=== PATIENT | female | born 1995 | race Caucasian/White ===

== ENCOUNTER 2024-11-17 09:27 | Inpatient (IN) ==
[2024-11-17] MEDS ORDERED: LACTATED RINGERS 1,000 ML IV PRN (09:40)
[2024-11-17] MEDS ORDERED: METHYLERGONOVINE 0.2 MG/ML VIAL IM PRN (09:40)
[2024-11-17] MEDS ORDERED: OXYTOCIN 10 UNIT/ML VIAL IM PRN (09:40)
[2024-11-17] MEDS ORDERED: LABETALOL 20 MG/4 ML SYRINGE IVP PRN ×3 (09:40)
[2024-11-17] MEDS ORDERED: TERBUTALINE 1 MG/ML VIAL SUBQ PRN (09:40)
[2024-11-17] MEDS ORDERED: miSOPROStoL 200 MCG TABLET BC PRN (09:40)
[2024-11-17] MEDS ORDERED: NIFEdipine 10 MG CAPSULE PO PRN (09:40)
[2024-11-17] MEDS ORDERED: SODIUM CHLORIDE FLUSH 0.9% 10 ML SYRINGE IVP PRN (09:40)
[2024-11-17] MEDS ORDERED: miSOPROStoL 200 MCG TABLET PR PRN (09:40)
[2024-11-17] MEDS ORDERED: hydrALAZINE INJ 20 MG/ML VIAL IVP PRN (09:40)
[2024-11-17] MEDS ORDERED: fentaNYL 100 MCG/2 ML VIAL IVP PRN (09:40)
[2024-11-17] MEDS ORDERED: lidocaine 1% 20 ML MDV ID PRN (09:40)
[2024-11-17] MEDS ORDERED: TRANEXAMIC ACID IN NACL 1,000 MG/100 ML BAG IV PRN (09:40)
[2024-11-17] MEDS ORDERED: LACTATED RINGERS 1,000 ML IV SCH (10:00)
[2024-11-17 10:28] LABS: BASOPHILS % (AUTO) 0.2 %; EOSINOPHILS % (AUTO) 0.4 %; HCT - HEMATOCRIT 36.9 % (37.0-47.0); HGB - HEMOGLOBIN 12.6 g/dL (12.0-16.0); LYMPHOCYTES # (AUTO) 1.5 10^3/uL (1.5-3.5); LYMPHOCYTES % (AUTO) 15.8 %; MEAN CORPUSCULAR HGB CONC 34.1 g/dL (32.0-36.0); MEAN CORPUSCULAR VOLUME 87.9 fL (81.0-99.0); MEAN PLATELET VOLUME 10.1 fL (7.9-10.8); MONOCYTES # (AUTO) 0.6 10^3/uL (0.0-1.0); MONOCYTES % (AUTO) 6.1 %; NEUTROPHILS # (AUTO) 7.3 10^3/uL (1.5-6.6); NEUTROPHILS % (AUTO) 77.2 %; PLT - PLATELET COUNT 207 10^3/uL (130-450); RED CELL DISTRIBUTION WIDTH 12.2 % (12.0-15.0); WHITE BLOOD COUNT 9.4 x10^3/uL (4.8-10.8)
--- NOTE | 2024-11-17 10:42 | HISTORY & PHYSICAL EXAMINATION ---
Admit History Smoking Status: Never smoker HPI Current : Vital Signs Temperature 97.9 F 11/17/24 09:41 Pulse Rate 84 11/17/24 09:41 Respiratory Rate 17 11/17/24 09:41 Blood Pressure 129/70 11/17/24 09:41 Meds/Allgy Home Medications Ambulatory Orders Medication Instructions Recorded Confirmed vitamins no.159-iron tab PO 06/04/24 11/15/24 fumarate 28 mg-folic acid 800 mcg tablet ( Vitamin) fluoxetine 10 mg capsule (Prozac) 10 mg PO QDAY #90 caps 08/20/24 11/15/24 Allergies Allergies Allergy/AdvReac Type Severity Reaction Status Date / Time pollen extracts Allergy Mild Unknown Verified 11/15/24 12:52 PFSH Active Problems All Active Problems (Updated 06/04/24 @ 16:52 by Eliz Oneal MA) Normal in second trimester (Acute) Surgical History Surgical History Hx of tonsillectomy Hx of adenoidectomy Family History Family History Maternal grandmother CVA (cerebral vascular accident) Aunt Thyroid disease Grandfather Cancer Grandmother Cancer Social History Social History Smoking Status: Never smoker Do you dip or chew tobacco?: No Do you vape?: No ETOH Use: None Substance Use: denies use Physical Abdominal Exam Vital Signs: Temp Pulse Resp BP 97.9 F 84 17 129/70 11/17/24 09:41 11/17/24 09:41 11/17/24 09:41 11/17/24 09:41 Plan for Labor Plan For Labor I expect patient to be DC'd or transferred within 96 hours.: Yes Plan for Labor: Marie is a 29yo @ 40.3wks gestation by LMP c/w 7wk U/S who presents to [facility] in active labor. Upon arrival cervix is 5/90/-2 and vertex with intact membranes. FHR baseline 120s, moderate variability, + accels, no decels. Contractions palpate strong every 3-4 minutes with soft resting tone. She reports contractions starting early this morning at 0130 and have increased in frequency and intensity since that time. She has been a patient of [facility] for the duration of her which has remained uncomplicated. She will be admitted to [facility] for expectant management. She is supported by her Vijay today. : [birth year]/08/20[birth year], @ 41+wks G2: Current; It's a GIRL! Sharon LMP: 02/05/2024-approximate PURNIMA by LMP: 11/06/2023 US: 04/03/2024 @ 7.6wks dates with PURNIMA 11/14/2024 Final PURNIMA: 11/14/2024 Medical Hx: no significant Surgical Hx: Tonsillectomy, adenoidectomy Family Hx: Thyroid disease - Aunt; Cancer - PGF, PGM Social hx: No ETOH or IVDA. Never smoker. 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 Vijay. Pre- Weight: 150 BMI: 26.6 Blood type: B positive Antibody Screen: negative CBC: PLT 246 HCT 12.9 HGB 40 RUB: immune VZV: immune HBsAg: NR HepC: NR RPR: NR HIV: NR Flu: declined Covid: x2 PAP: 04/2022 WNL GC/CT: neg HSV: denies in self and partner Genetic testing: declines FLU shot: 06/17/2024 FAS: 07/02/2024 Placenta: fundal Cord: 3VC ADELIA: 16.9cm EFW: 372g 50gm OGCT: 54 TDAP: 08/20/2024 Breast Pump: 08/20/2024 CBC: PLT 187/HCT 11.4/HGB 35.6 RPR: NR GBS: Negative Delivery plan: Desires unmedicated, low intervention delivery MOD: Anticipate Physical exam: Normocephalic, atraumatic Heart RRR w/o M/G/R Lungs CTAB Abdomen gravid, soft, nontender EFW 3700g FHR baseline 120s, moderate variability, = accels, no decels Contractions palpate strong every 3-4 minutes with soft resting tone SVE 5/90/-2, vertex. Intact membranes - bulging Bilateral LE's no edema Mood is good. Assessment: 29yo @ 40.3wks gestation Active labor GBS negative FHR Category I Plan: Admit to [facility] for expectant management. Intermittent heart rate auscultation. Jacuzzi PRN. Nitrous oxide PRN. Epidural per maternal request. Anticipate . Conclusion/Plan Lab Results 11/17/24 10:18
[2024-11-17] MEDS ORDERED: ONDANSETRON 4 MG/2 ML VIAL IVP PRN (11:51)
[2024-11-17] MEDS: OXYTOCIN/SODIUM CHLORIDE 500 ML IV PRN (14:39)
[2024-11-17] MEDS ORDERED: HYDROCORTISONE 1% CREAM 28 GM TUBE TOP PRN (15:21)
[2024-11-17] MEDS ORDERED: WITCH HAZEL/GLYCERIN 1 PAD TOP PRN (15:21)
[2024-11-17] MEDS ORDERED: OXYTOCIN/SODIUM CHLORIDE 500 ML IV PRN (15:21)
[2024-11-17] MEDS ORDERED: SIMETHICONE CHEW 80 MG TABLET PO PRN (15:21)
[2024-11-17] MEDS ORDERED: ACETAMINOPHEN 500 MG TABLET PO PRN (15:21)
--- NOTE | 2024-11-17 15:27 | DELIVERY NOTE ---
Delivery Note Delivery Comments (Free Text/Narrative) Delivery Comments (Free Text/Narrative): Labor: This 29yo @ 40.3wks gestation by LMP c/w 7wk U/S presented to [facility] in active labor. Cervix was 5/90/-2 and vertex. FHR demonstrated Category I pattern throughout labor with Category II tracing at the end of the second stage however overall remained reassuring. Normal labor course. AROM occurred @ 1205 and was noted to be a moderate amount of meconium stained amniotic fluid and the middleware solutions architect split leather mosser was notified. She progressed to anterior lip with urge to push at 1233. She progressed to c/c/0 at 1331. : Normal SVB of viable female infant on 11/17/2024 @ 1427. No nucal cord. Compound right hand. The was placed on maternal abdomen, stimulated, dried, and placed skin to skin. 's were 7/9 at 1 and 5 min respectively. Pitocin administered via IV for hemostasis. The umbilical cord was allowed to stop pulsating at which time it was doubly clamped by CNM and cut by FOB. Cord blood was obtained. 3VC. Fundal massage and gentle cord traction applied for active management of the third stage. Placenta delivered spontaneously and intact at 1438. QBL 85mL. Fourth stage: Uterine fundus firm and there is no excessive bleeding. The perineum, vagina, and cervix were inspected and found to be intact. initiated. Both mother and baby were left in stable condition.
[2024-11-17] MEDS: ACETAMINOPHEN 500 MG TABLET PO PRN (16:16)
[2024-11-17] MEDS: IBUPROFEN 800 MG TABLET PO PRN (16:16)
[2024-11-17 16:37] VITALS: O2SAT 99
[2024-11-17] MEDS: DOCUSATE SODIUM 100 MG CAPSULE PO SCH (21:34)
[2024-11-18 04:48] VITALS: BP 119/65; TEMP 98.1
[2024-11-18] MEDS: guaiFENesin/DEXTROMETHORPHAN 10 ML UDC PO PRN (05:20)
--- NOTE | 2024-11-18 07:40 | Discharge Summary ---
Discharge Summary HPI History of Present Illness: Date of Admission: 11/17/2024 Date of Discharge: 11/18/2024 Diagnosis on admission: 29yo @ 40.3wks gestation Active labor GBS negative FHR Category I Diagnosis on Discharge 29 yo PPD #1 Normal course Physical exam: Normocephalic, atraumatic Normal uterine involution, FF below umbilicus Small rubra bleeding Minimal perineal discomfort Bilateral LE's trace edema Mood is good. Brief History: This 29yo @ 40.3wks gestation by LMP c/w 7wk U/S presented to [facility] in active labor. Cervix was 5/90/-2 and vertex. FHR demonstrated Category I pattern throughout labor with Category II tracing at the end of the second stage however overall remained reassuring. Normal labor course. AROM occurred @ 1205 and was noted to be a moderate amount of meconium stained amniotic fluid and the simulation engineer advertising rep was notified. She progressed to anterior lip with urge to push at 1233. She progressed to c/c/0 at 1331. : Normal SVB of viable female infant on 11/17/2024 @ 1427. No nucal cord. Compound right hand. The was placed on maternal abdomen, stimulated, dried, and placed skin to skin. 's were 7/9 at 1 and 5 min respectively. Pitocin administered via IV for hemostasis. The umbilical cord was allowed to stop pulsating at which time it was doubly clamped by CNM and cut by FOB. Cord blood was obtained. 3VC. Fundal massage and gentle cord traction applied for active management of the third stage. Placenta delivered spontaneously and intact at 1438. QBL 85mL She has been doing well in her course. She is ambulating and tolerating a regular diet. She is urinating without difficulty and her lochia is normal. Her pain is well controlled without narcotic management. She will be discharged to home today on day #1 and encouraged IBU, tylenol and stool softeners PRN. She intends to follow up with [facility] in 1 week for telehealth. She has been given precautions to call if she has any new or worsening sx such as fevers, chills, abdominal pain, increasing bleeding, or foul smelling vaginal lochia. preeclamptic precautions reviewed as well. VZV: immune Rubella: immune RH: B+ ALLERGIES Allergies Allergy/AdvReac Type Severity Reaction Status Date / Time pollen extracts Allergy Mild Unknown Verified 11/15/24 12:52 MEDICATIONS Ambulatory Orders Medication Instructions Recorded Confirmed vitamins no.159-iron 1 tab PO DAILY 06/04/24 11/18/24 fumarate 28 mg-folic acid 800 mcg tablet ( Vitamin) fluoxetine 10 mg capsule (Prozac) 10 mg PO QDAY #90 caps 08/20/24 11/18/24 PHYSICAL EXAM AT DISCHARGE Vital Signs: Vital Signs x48h Temp Pulse Resp BP 11/18/24 04:45 36.7 C 73 16 119/65 LABS 11/17/24 10:18 Discharge Plan Discharge Patient Disposition: Home, Self Care Prescriptions: Continued Vitamin 28 mg iron- 800 mcg tablet 1 tab PO DAILY fluoxetine [Prozac] 10 mg capsule 10 mg PO QDAY Qty: 90 4RF Print Language: Syriac Patient Instructions: Breastfeed Holds
--- NOTE | 2024-11-18 12:20 | PHARMACY PROGRESS NOTE ---
Best Possible Medication History Admit Date and Time: 11/17/24 [id number] Home Medications Medication Instructions Recorded Confirmed Type vitamins no.159-iron 1 tab PO DAILY 06/04/24 11/18/24 History fumarate 28 mg-folic acid 800 mcg tablet ( Vitamin) fluoxetine 10 mg capsule (Prozac) 10 mg PO QDAY #90 caps 08/20/24 11/18/24 Rx Processed by: Pharmacy Medications reviewed in ED?: No Medication History completed: Yes Patient Interview: Completed Secondary Source(s): Insurance records [facility] Statement: Per community health advisor and RN interview with patient. [employer] records also reviewed. As the person ultimately responsible for medication therapy, providers are able to order a medication from an existing home medication list in [facility] via the "Reconcile Routine" prior to Confirmation of that medication by community support worker. Such practice is discouraged except when the physician, in their clinical judgment, deems that a medical need exists for a medication without regard to previous use.
--- NOTE | 2024-11-18 15:33 | Labor Flowsheet ---
Labor Flowsheet Datetime Report Generated by CPN: 11/18/2024 15:32 Datetime: 11/18/2024 10:45 VITAL SIGNS NBP Sys/Cheryl/Mean (mmHg): 115 : 64 : 76 Pulse: 85 Datetime: 11/17/2024 17:30 Stage of : Datetime: 11/17/2024 16:34 LaborFlag: Labor Datetime: 11/17/2024 15:39 SpO2 (%): 99 Datetime: 11/17/2024 14:48 Membranes Ruptured Date/Time: 11/17/2024 12:05 Datetime: 11/17/2024 14:39 MEDICATIONS Medication Comments: pit bolus per A.Keyur,CNM Datetime: 11/17/2024 14:38 Stage 2 Comments: placenta Datetime: 11/17/2024 14:24 Vaginal Exam Comments: infant with rapid descent Datetime: 11/17/2024 14:23 COMMUNICATION Communication Comments: Dr. willaims called for consult of vacuum d/t distress Datetime: 11/17/2024 14:14 PAIN Pain Assessment Comments: nitrious oxide d/c per patient Pushing Position: Pushing Lithotomy Datetime: 11/17/2024 13:59 UTERINE ACTIVITY Monitor Mode: External Frequency (min): 1.5-2 Duration (sec): 55-80 Monitor Interventions for FHR: Ultrasound Adjusted FHR Baseline Rate : 145 Variability: Moderate 6-25 bpm Decelerations: Late Category: Category II Datetime: 11/17/2024 13:31 VAGINAL EXAM Dilatation (cm): 10.0 Datetime: 11/17/2024 13:29 Accelerations: None Datetime: 11/17/2024 12:27 STAGE 2 Pushing: Urge to Push Datetime: 11/17/2024 12:09 PATIENT CARE I/O Interventions: Up to BR Datetime: 11/17/2024 12:05 Effacement (%): 100 Station: 0 Exam by: EMLE Dixon Membrane Status: Ruptured Membranes Rupture Method: Artificial Amniotic Fluid Color: Heavy Meconium Amniotic Fluid Amount: Moderate Datetime: 11/17/2024 11:47 ASSESSMENT A Monitor Mode: Telemetry Datetime: 11/17/2024 10:59 Patient Care Comments: pt remains in tub Datetime: 11/17/2024 10:22 Comments: maternal HR tracing. VO per A.Keyur, CNM to remove monitors for intermittent monitoring
== END 2024-11-18 15:31 | disposition home or self-care (01) | DRG 807 ==
LOC: WFO 09:27 → FBP 09:30
PROVIDERS: ADMIT Nurse Practitioner Obstetrics & Gynecology; ATTEND Nurse Practitioner Obstetrics & Gynecology